=== PATIENT | female | born 1950 | race Caucasian/White ===

== ENCOUNTER 2021-03-02 11:50 | Emergency (ER) | payer MEDICAID ==
[~2021-03-02] VITALS: Ht 165.1 cm; Wt 91.0 kg
[~2021-03-02 11:50] MED LIST: AMOX-424 MT; BO1 TP; T3 PO
[2021-03-02 13:34] VITALS: BP 138/70
== END 2021-03-02 13:34 | disposition home or self-care (01) ==
LOC: ER 11:50
DX: Z48.02 Encounter for removal of sutures (principal); E11.9 Type 2 diabetes mellitus without complications; Z90.710 Acquired absence of both cervix and uterus
CPT/HCPCS: 99281; Z7610

== ENCOUNTER 2023-04-20 20:46 | Emergency (ER) | payer MEDICAID, OTHER ==
[~2023-04-20] VITALS: Ht 162.6 cm; Wt 70.0 kg
[2023-04-20 20:58] VITALS: O2SAT 96
[2023-04-20 21:45] LABS: BASOPHILS % 0.6 % (0.0-2.0); DIFFERENTIAL COMMENT 0; EOSINOPHILS % 3.3 % (0.0-5.0); HEMATOCRIT. 39.9 % (36.0-48.0); HEMOGLOBIN. 12.8 g/dL (12.0-16.0); MEAN CORPUSCULAR HGB CONC 31.9 g/dL (31.0-37.0); MEAN CORPUSCULAR VOLUME 78.2 fL (81.0-99.0); MEAN PLATELET VOLUME 8.1 fl (7.4-10.4); NEUTROPHILS % 52.1 % (40.0-76.0); PLATELET 254 x1000/uL (130-400); RED BLOOD CELL COUNT 5.11 mill/uL (4.2-5.4); RED CELL DISTRIBUTION WIDTH 17.1 % (11.6-14.6); WHITE BLOOD COUNT 9.7 x1000/uL (4.5-11.0)
[2023-04-20 21:56] LABS: CHLORIDE 104 mEq/L (98-107); INDEX HEMOLYSI 1 (1-3); INDEX ICTERIC 1 (1-4); INDEX LIPEMIC 1 (1-3); POTASSIUM 4.6 mEq/L (3.5-5.1); SODIUM 138 mEq/L (136-145)
[2023-04-20 22:01] LABS: ALBUMIN 3.6 g/dL (3.4-5.0); CARBON DIOXIDE 23 mEq/L (21-32); GLUCOSE 115 mg/dL (70-105); UREA NITROGEN BLOOD 17 mg/dL (7-21)
[2023-04-20 22:06] LABS: ALANINE AMINOTRANSFERASE 46 IU/L (13-61); ASPARTATE AMINOTRANSFERASE 38 IU/L (15-37); BILIRUBIN TOTAL 0.3 mg/dL (0.1-1.0); CREATININE 0.5 mg/dL (0.6-1.3); PROTEIN TOTAL 8.2 g/dL (6.0-8.3)
[2023-04-20 22:08] LABS: TROPONIN I HIGH SENSITIVITY < 4 ng/L (<54)
[2023-04-20] MEDS ORDERED: SODIUM CHLORIDE 0.9% 1,000 ML IV ONE (23:30)
[2023-04-21] MEDS ORDERED: MORPHINE SULFATE 4 MG/ML CPJ (NOT FOR IM USE) IV STA (00:10)
[2023-04-21] MEDS ORDERED: ONDANSETRON HCL 4MG/2ML INJ IV STA (00:10)
[2023-04-21 00:20] LABS: CLARITY URINE CLEAR (CLEAR); COLOR URINE DARK YELLOW (YELLOW); GLUCOSE URINE NEGATIVE (NEGATIVE); KETONES URINE NEGATIVE (NEGATIVE); LEUKOCYTE ESTERASE URINE NEGATIVE (NEGATIVE); NITRITE URINE NEGATIVE (NEGATIVE); OCCULT BLOOD URINE NEGATIVE (NEGATIVE); PH URINE 5.5 (4.5-8.0); PROTEIN URINE NEGATIVE (NEGATIVE); SPECIFIC GRAVITY URINE 1.017 (1.005-1.030)
[2023-04-21 03:05] VITALS: BP 131/65; PULSE 79; RESP 16; TEMP 98.4
== END 2023-04-21 03:06 | disposition short-term general hospital (02) ==
LOC: ER 21:09
DX: K43.9 Ventral hernia without obstruction or gangrene (principal); R19.04 Left lower quadrant abdominal swelling, mass and lump; E11.9 Type 2 diabetes mellitus without complications; Z90.710 Acquired absence of both cervix and uterus
CPT/HCPCS: 80053; 81003; 83690; 85025; 84484; 36415; 93005; 96361; 99285; 74177; 96374; 96375; Z7610; J2405; J2270

== ENCOUNTER 2024-08-15 11:45 | Emergency (ER) | payer OTHER ==
[~2024-08-15] VITALS: Ht 157.5 cm; Wt 87.0 kg
[2024-08-15 12:06] VITALS: O2SAT 98
[2024-08-15 14:04] LABS: BASOPHILS % 0.7 % (0.0-2.0); DIFFERENTIAL COMMENT 0; EOSINOPHILS % 2.3 % (0.0-5.0); HEMATOCRIT. 35.5 % (36.0-48.0); HEMOGLOBIN. 11.1 g/dL (12.0-16.0); LYMPHOCYTES % 33.6 % (20.0-50.0); MEAN CORPUSCULAR HEMOGLOBIN 22.4 pg (28.0-32.0); MEAN CORPUSCULAR HGB CONC 31.2 g/dL (31.0-37.0); MEAN CORPUSCULAR VOLUME 71.7 fL (81.0-99.0); MEAN PLATELET VOLUME 8.5 fl (7.4-10.4); NEUTROPHILS % 55.4 % (40.0-76.0); PLATELET 272 x1000/uL (130-400); RED BLOOD CELL COUNT 4.95 mill/uL (4.2-5.4); RED CELL DISTRIBUTION WIDTH 17.9 % (11.6-14.6); WHITE BLOOD COUNT 7.4 x1000/uL (4.5-11.0)
[2024-08-15 14:05] LABS: CARBON DIOXIDE 27 mEq/L (21-32); CHLORIDE 108 mEq/L (98-107); POTASSIUM 3.7 mEq/L (3.5-5.1); SODIUM 141 mEq/L (136-145)
[2024-08-15 14:06] LABS: CALCIUM 9.1 mg/dL (8.7-10.4)
[2024-08-15 14:10] LABS: CREATININE 0.6 mg/dL (0.6-1.0)
[2024-08-15 14:11] LABS: GLUCOSE 112 mg/dL (70-105); UREA NITROGEN BLOOD 15 mg/dL (9-23)
[2024-08-15 14:12] LABS: ALANINE AMINOTRANSFERASE < 7 IU/L (10-49); ASPARTATE AMINOTRANSFERASE 14 IU/L (<34)
[2024-08-15 14:13] LABS: BILIRUBIN TOTAL 0.4 mg/dL (0.1-1.0); PROTEIN TOTAL 7.6 g/dL (6.0-8.3)
[2024-08-15 14:34] LABS: TROPONIN I HIGH SENSITIVITY < 4 ng/L (3.0-34)
[2024-08-15 15:17] LABS: ERYTHROCYTE SEDIMENTATION RATE 9 mm/hr (0-30)
[2024-08-15 15:33] VITALS: BP 136/77; PULSE 76; RESP 18; TEMP 36.66960; O2SAT 98
== END 2024-08-15 15:34 | disposition home or self-care (01) ==
LOC: ER 11:45
DX: M25.561 Pain in right knee (principal); M25.562 Pain in left knee; E11.9 Type 2 diabetes mellitus without complications; Z90.710 Acquired absence of both cervix and uterus; Z96.659 Presence of unspecified artificial knee joint
CPT/HCPCS: 80053; 83880; 85025; 85651; 84484; 36415; 71045; 93970; 93005; 99285; Z7610 ×3; A4606